=== PATIENT | female | born 1995 | race African-American/Black ===

== ENCOUNTER 2022-12-06 15:25 | Emergency (ER) | payer MEDICAID ==
[~2022-12-06] VITALS: Ht 165.1 cm; Wt 63.5 kg
[2022-12-06 15:34] VITALS: TEMP 98.1
[2022-12-06] MEDS ORDERED: MORPHINE SULFATE INJ 2 MG/ML DISP.SYRIN IV ONE (16:00)
[2022-12-06] MEDS ORDERED: MORPHINE SULFATE INJ 4 MG/ML DISP.SYRIN ONE (16:00)
[2022-12-06 16:21] LABS: BASOPHILS # (AUTO) 0.1 K/uL (0.0-0.2); BASOPHILS % (AUTO) 0.5 % (0.0-2.0); EOSINOPHILS % (AUTO) 0.3 % (0.0-6.0); HEMATOCRIT 38 % (33-45); HEMOGLOBIN 12.3 g/dL (11.5-14.8); LYMPHOCYTES % (AUTO) 16.6 % (20.0-44.0); MEAN CORPUSCULAR HEMOGLOBIN 31 PG (26.0-33.0); MEAN CORPUSCULAR HGB CONC 33 g/dl (31.0-36.0); MEAN CORPUSCULAR VOLUME 95 fL (82-100); MONOCYTES % (AUTO) 8.6 % (2.0-12.0); NEUTROPHILS # (AUTO) 8.9 K/uL (1.8-8.9); PLATELET COUNT (AUTO) 210 K/uL (150-450); RED BLOOD CELL COUNT(AUTO) 3.98 MIL/uL (4.0-5.2); RED CELL DISTRIBUTION WIDTH 13.3 % (11.5-15.0)
[2022-12-06 16:28] LABS: CALCIUM, SERUM 8.8 mg/dL (8.5-10.1); CREATININE 0.5 mg/dL (0.6-1.3)
[2022-12-06] MEDS ORDERED: IOHEXOL-300 100 ML VIAL IV ONE (17:06)
[2022-12-06] MEDS ORDERED: IV NS 0.9% 250 ML IV ONE (17:07)
[2022-12-06] MEDS ORDERED: AMOX-430 PO (18:31)
[2022-12-06] MEDS ORDERED: HYDR-4209 PO (18:31)
[2022-12-06 18:44] VITALS: BP 132/67
[2022-12-06 19:20] VITALS: O2SAT 99
== END 2022-12-06 20:07 | disposition home or self-care (01) ==
LOC: ER 15:35
DX: O26.899 Other specified pregnancy related conditions, unspecified trimester (principal); K04.7 Periapical abscess without sinus; K08.89 Other specified disorders of teeth and supporting structures; J45.909 Unspecified asthma, uncomplicated; Z3A.00 Weeks of gestation of pregnancy not specified
CPT/HCPCS: 99285; 70491; 96374; 70487; 85025; 80048; 36415; J2270; J7030; J7050; Q9967